=== PATIENT | female | born 1965 | race Caucasian/White ===

== ENCOUNTER 2024-02-25 15:30 | Outpatient (CLI) | payer OTHER, SELFPAY ==
--- NOTE | 2024-02-25 15:32 | MM_ITS ---
WS: [id number] BILATERAL SCREENING DIGITAL TOMOSYNTHESIS MAMMOGRAM WITH CAD HISTORY: Screening. COMPARISON: 07/17/2023, 06/20/2022, 05/10/2021 Bilateral CC and MLO views with tomosynthesis and synthetic mammography submitted. Computer aided det ection analyzed. Breast composition: There are scattered areas of fibroglandular density. No suspicious masses, microc alcifications or architectural distortion. MM/MM scr BI tomosynthesis [id number] IMPRESSION: BI-RADS: 2 - Benign. FOLLOW UP: 1 Year Follow-up
== END 2024-02-25 15:31 | disposition home or self-care (01) ==
LOC: RAD 15:33
PROVIDERS: PCP Family Medicine; Visit Provider Family Medicine
DX: Z12.31 Encounter for screening mammogram for malignant neoplasm of breast (principal); R92.323 Mammographic fibroglandular density, bilateral breasts
CPT/HCPCS: 77063; 77067

== ENCOUNTER 2024-11-22 07:23 | Emergency (ER) | payer BC, SELFPAY ==
[2024-11-22 07:32] VITALS: BP 128/73; PULSE 85; RESP 16; TEMP 36.7; O2SAT 98; BMI 23.0
--- NOTE | 2024-11-22 07:40 | XR_ITS ---
WS: [id number] XR hip LT 2-3V wo/w pel* [id number] REASON FOR EXAM: fall FINDINGS: Femoral head, neck, and intertrochanteric region are intact. Proximal femur is intact. Superior and inferior pubic rami are intact. Mild osteoarthritis in the left hip joint. XR/XR hip LT 2-3V wo/w pel* [id number] IMPRESSION: No acute bone or joint abnormality.
--- NOTE | 2024-11-22 07:40 | XR_ITS ---
WS: [id number] XR wrist LT min 3V* [id number] REASON FOR EXAM: fall FINDINGS: There is a healing fracture in the distal radial metaphysis extending obliquely across the metaphysis at the base of the radial styloid. The mid articular surface of the radius is involved with the fracture. Additional fracture line extends toward the metadiaphysis. On the lateral there is mild dorsal angulation at the fracture site. XR/XR wrist LT min 3V* [id number] IMPRESSION: Subacute minimally displaced healing fracture of the distal left radius as abov e.
--- NOTE | 2024-11-22 07:40 | W.ED.FALL ---
HPI - Fall General: Chief Complaint: Fall Stated Complaint: fell off bed on 11/18,lower back and tailbone pain Time Seen by Provider: 11/22/24 07:31 Source: patient Mode of arrival: ambulatory Limitations: no limitations History of Present Illness: 59-year-old female who states that she had fell off her bed on Thursday states she fell backwards onto her left hip and left wrist. She states she has been having pain in that hip since then. States it does hurt to walk but she is able to ambulate. She denies any back pain denies hitting her head or any neck pain she does have bruising to her left wrist rates her wrist pain a 2 out of 10 her hip pain is 7 out of 10 currently. Related Data Previous Rx's ?Medication ?Instructions ?Recorded hydrocodone 5 mg-acetaminophen 325 1 tab PO Q6H PRN pain #14 tabs 11/22/24 mg tablet Allergies Allergy/AdvReac Type Severity Reaction Status Date / Time No Known Allergies Allergy Verified 11/22/24 07:37 Review of Systems Musc: Reports: extremity pain Physical Exam Const: COMMON NORMALS: no acute distress, patient oriented x3 and healthy appearing HENMT: COMMON NORMALS: normocephalic and atraumatic HEAD & SCALP: normocephalic and atraumatic Eye: COMMON NORMALS: conjunctivae normal CONJUNCTIVA: Yes conjunctivae normal Neck/C-Spine: COMMON NORMALS: full ROM and supple Chest: COMMONS NORMALS: normal inspection of the chest Resp: COMMON NORMALS: normal respiratory effort Cardio: COMMON NORMALS: regular rate RATE: regular rate Back/Pelvis: OTHER: No tenderness along the lumbar or thoracic spine Extremity: COMMON NORMALS: full ROM NARRATIVE EXTREMITY EXAM: Contusion noted left wrist with slight tenderness no obvious deformity. Does have tenderness to the left lateral hip with no obvious deformity has full range of motion with minimal pain Neuro: COMMON NORMALS: patient oriented x3, moves all extremities and no focal motor deficits Psych: COMMON NORMALS: mental status grossly normal, Normal thought process present and cooperative THOUGHT PROCESS: Normal thought process present Skin: COMMON NORMALS: no rashes or lesions noted and no wounds GENERAL SKIN EXAM: no rashes or lesions noted Course Vital Signs: Vital signs: Vital Signs Temperature 98.1 F 11/22/24 07:32 Pulse Rate 85 11/22/24 07:32 Respiratory Rate 16 11/22/24 07:32 Blood Pressure 128/73 11/22/24 07:32 Pulse Oximetry 98 11/22/24 07:32 Oxygen Delivery Me thod Room Air 11/22/24 07:32 MDM - Fall Medical Decision Making Patient presents after fall on Thursday. She been having some left hip bruising and pain since then. Patient's imaging here shows no acute fracture of her hip or her wrist. She had no other injuries noted no signs of any major trauma. Patient has no signs of hip dislocation or hip fracture she is ambulatory here we will prescribe her a few [place] for home she is to continue her home meds follow-up with PCP and return if worsening. Medical Records I reviewed the patient's medical records. XR interpretation done by ED provider, pending radiology final review ED provider radiology interpretation(s): xr L hip no acute fx xr l wrist no acute fx Discharge Plan Discharge Patient Disposition: Home Clinical Impression: Contusion of left hip, Fall Condition: Stable Prescriptions: New hydrocodone-acetaminophen 5-325 mg tablet 1 tab PO Q6H PRN (Reason: pain) Qty: 14 0RF Discharge Orders: Discharge ED (Routine); Ordered 11/22/24 Ordered By: Fidel Shaikh Referrals: Tyrese Garcia MD [Primary Care Provider, Family Practice] - 4-7 days Discharge Diet: Advance as tolerated Discharge Activity: Resume usual activity Patient Instructions: Hip Contusion (ED) Print Language: Armenian Coding Level of Care Code ED [employer] for Arcelia Ramirez
[2024-11-22 08:34] VITALS: BP 128/73; PULSE 63; O2SAT 98; O2SAT 99
== END 2024-11-22 08:40 | disposition home or self-care (01) ==
PROVIDERS: Emergency Provider Emergency Medicine; PCP Family Medicine
DX: S70.02XA Contusion of left hip, initial encounter (principal); W06.XXXA Fall from bed, initial encounter
CPT/HCPCS: 73110; 73502; 99284

== ENCOUNTER 2025-01-31 14:45 | Outpatient (CLI) | payer BC, SELFPAY ==
--- NOTE | 2025-01-31 14:59 | MR_ITS ---
WS: [id number] MRI LUMBAR SPINE NONCONTRAST TECHNIQUE: Sagittal T1, T2 and STIR imaging. Axial T1 and T2 imaging. CLINICAL INFORMATION: ACUTE BILATERAL LOW BACK PAIN WITH RIGHT-SIDED SCIATICA COMPARISON: None. FINDINGS: Counting performed from the craniocervical junction. 6 distal segmental vertebral bodies labeled L1-L6 for the purposes of this dictation. Recommend plain film correlation prior to surgical intervention. Compression fracture with anterior wedging at L2. Visualized fracture cleft in the superior endplate. Loss of approximately 50% vertebral body height. Edema in the superior endplate. Mild retropulsion of the posterior superior cortex with slight effacement of the ventral thecal sac. L1-L2: Mild annular bulging. Moderate facet arthropathy. Slight narrowing of the subarticular recess. L2-L3: Mild annular bulging. Slight narrowing of the RIGHT greater than LEFT subarticular recess. Moderate facet arthropathy. Foramen are patent. L3-L4: Mild annular bulging. Slight narrowing of the subarticular recess bilaterally. Mild facet arthropathy. Foramen are patent. L4-L5: Slight narrowing of the RIGHT subarticular recess. Moderate facet arthropathy. Mild RIGHT foraminal narrowing. L5-L6: Grade 1 anterolisthesis. Annular bulging with moderate to severe central canal stenosis and impingement on the traversing RIGHT greater than LEFT traversing L6 nerve roots. Advanced facet arthropathy. Mild to moderate RIGHT foraminal narrowing. Recommend spine surgery consultation. Chronic spondylolysis at this level with edema in the posterior facets. Associated synovitis likely degenerative. L6-S1: Mild annular bulging. Encroachment of traversing S1 nerve roots bilaterally. Mild RIGHT foraminal narrowing. Moderate facet arthropathy. Suggestion of bilateral spondylolysis at this level also with edema extending into the pedicles and facets bilaterally. Edema can be seen with instability or degenerative arthritis. Visualized pelvic bony structures: Normal. Paravertebral soft tissues: Normal. Tiny syrinx or myelomalacia in the cervical cord at C6. This could be further evaluated with cervical spine MRI. MR/MR lumbar spine wo con* [id number] IMPRESSION: 1. Counting performed from the craniocervical junction. 6 distal segmental estevan tebral bodies labeled L1-L6 for the purposes of this dictation. Recommend plain film correlation prior to surgical intervention. 2. Tiny syrinx or myelomalacia in the cervical cord at C6. This could be furth er evaluated with cervical spine MRI 3. Acute compression fracture L2 with anterior wedging and loss of approximate ly 50 percent vertebral body height. Mild retropulsion of the posterior superio r cortex. 4. Moderate to severe central canal stenosis L5-L6 with impingement of claude ing RIGHT L6 nerve root. Recommend spine surgery consultation. Mild to moderate RIGHT foraminal narrowing. 5. Mild RIGHT L5-S1 foraminal narrowing. 6. Chronic spondylolysis at L5-L6 and L6-S1 with edema extending into the pedi cles and facets bilaterally likely inflammatory or degenerative. This also can be seen with instability. 7. Mild narrowing of the RIGHT L4-5 subarticular recess. 8. Advanced facet arthropathy L5-L6.
== END 2025-01-31 14:46 | disposition home or self-care (01) ==
LOC: RAD 14:45
PROVIDERS: PCP Family Medicine; Visit Provider Family Medicine
DX: M54.41 Lumbago with sciatica, right side (principal); S32.020A Wedge compression fracture of second lumbar vertebra, initial encounter for closed fracture; X58.XXXA Exposure to other specified factors, initial encounter; M48.07 Spinal stenosis, lumbosacral region; M54.17 Radiculopathy, lumbosacral region; M43.07 Spondylolysis, lumbosacral region; M47.896 Other spondylosis, lumbar region
CPT/HCPCS: 72148